=== PATIENT | female | born 1990 | race Caucasian/White ===

== ENCOUNTER 2019-10-29 09:47 | Emergency (ER) | payer MEDICAID ==
--- NOTE | 2019-10-29 12:01 | ED Physician Documentation ---
PD HPI URI - Stated complaint Stated Complaint: FEVER - Chief complaint Chief Complaint: Fever - History obtained from History obtained from: Patient - History of Present Illness Timing - onset: How many days ago (2 1/2) Timing duration: Days (2 1/2) Timing details: Abrupt onset, Still present Associated symptoms: Fever, Chills, Nasal congestion, Dry cough, NVD, Other (general aches) Contributing factors: Sick contact (her son had URI symptoms last week, but only sick for couple days), Unimmunized (did not get flu shot). No: Travel, Immunocompromised Similar symptoms before: Has not had sx before Recently seen: Not recently seen Review of Systems Constitutional: reports: Fever, Chills, Myalgias, Fatigue Nose: reports: Rhinorrhea / runny nose, Congestion Throat: reports: Sore throat Respiratory: reports: Cough GI: reports: Nausea, Diarrhea. denies: Abdominal Pain, Vomiting Neurologic: reports: Headache. denies: Near syncope, Confused, Altered mental status PD PAST MEDICAL HISTORY - Past Medical History Cardiovascular: None Respiratory: None Endocrine/Autoimmune: None GI: None : None HEENT: None Psych: None Musculoskeletal: None Derm: None - Past Surgical History Past Surgical History: Yes General: Other /MANAGER HOSPICE: section - Present Medications Home Medications: Ambulatory Orders Medication Instructions Recorded Confirmed Pnv No.95/Ferrous Fum/Folic AC 1 each PO DAILY 09/16/14 09/16/14 [ Tablet] Benzonatate [Tessalon Perle] 100 mg PO TID PRN #25 capsule 10/29/19 Ondansetron Odt [Zofran] 4 mg TL Q6H PRN #15 tablet 10/29/19 Oseltamivir [Tamiflu] 75 mg PO BID #10 capsule 10/29/19 dexAMETHasone [Decadron] 4 mg PO DAILY #5 tablet 10/29/19 diphenhydrAMINE [Benadryl] 25 mg PO Q4-6H PRN #20 capsule 10/29/19 - Allergies Allergies/Adverse Reactions: Allergies Allergy/AdvReac Type Severity Reaction Status Date / Time sulfamethoxazole Allergy Unknown Verified 09/16/14 07:52 [From ] trimethoprim [From ] Allergy Unknown Verified 09/16/14 07:52 - Social History Does the pt smoke?: No Smoking Status: Never smoker Does the pt drink ETOH?: No - Immunizations Immunizations are current?: Yes PD ED PE NORMAL - Vitals Vital signs reviewed: Yes - General General: Alert and oriented X 3, No acute distress, Well developed/nourished - HEENT HEENT: Ears normal, Moist mucous membranes, Pharynx benign - Neck Neck: Supple, no meningeal sign, No adenopathy - Cardiac Cardiac: RRR (tachycardic but regular. ), No murmur - Respiratory Respiratory: Clear bilaterally - Abdomen Abdomen: Soft, Non tender - Derm Derm: Normal color, Warm and dry - Extremities Extremities: No edema, No calf tenderness / cord - Neuro Neuro: Alert and oriented X 3, No motor deficit, Normal speech Results - Vitals Vitals: Vital Signs - 24 hr 10/29/19 10/29/19 10:28 13:07 Temperature 37.4 C Heart Rate 130 H 90 Respiratory 18 14 Rate Blood Pressure 110/74 110/76 O2 Saturation 98 100 Oxygen O2 Source Room air - EKG (time done) 12:37 Rate: Rate (enter#) (118) Rhythm: Sinus tachycardia Mcintosh: Normal Intervals: Normal AR QRS: Normal Ischemia: Normal ST segments. No: ST elevation c/w ischemia, ST depression - Labs Labs: Laboratory Tests 10/29/19 10/29/19 10:30 10:30 Influenza A (Rapid) Negative Influenza B (Rapid) POSITIVE H Group A Strep Rapid Negative PD MEDICAL DECISION MAKING - ED course Complexity details: considered differential (does not appear that ill. Heart rate is fast but BP is good, sats good, she has been hydrating. I feel comfortable discharging her with the tachycardia. ), d/w patient Departure - Departure Disposition: 01 Home, Self Care Clinical Impression: Influenza B Upper respiratory infection Qualifiers: URI type: unspecified URI Qualified Code(s): J06.9 - Acute upper respiratory infection, unspecified Condition: Stable Record reviewed to determine appropriate education?: Yes Instructions: ED Flu Prescriptions: Benzonatate [Tessalon Perle] 100 mg PO TID PRN #25 capsule PRN Reason: Cough dexAMETHasone [Decadron] 4 mg PO DAILY #5 tablet diphenhydrAMINE [Benadryl] 25 mg PO Q4-6H PRN #20 capsule PRN Reason: Cold Symptons Ondansetron Odt [Zofran] 4 mg TL Q6H PRN #15 tablet PRN Reason: Nausea / Vomiting Oseltamivir [Tamiflu] 75 mg PO BID #10 capsule Comments: Stay well-hydrated. Tylenol or ibuprofen if needed for fevers and pains. Tessalon if needed for cough. Decadron steroid to help with inflammation through the airways and respiratory tract. This will decrease coughing and improve breathing. You tested positive for flu B. You may get some benefit from an antiviral medicine since you are earlier in the course of this. Take Tamiflu twice daily for 5 days. Add diphenhydramine if needed for cough and to help with sleep as well. Ondansetron if needed for nausea. Off work for several days due to acute illness. Recheck if worsening. Forms: Activity restrictions Discharge Date/Time: 10/29/19 13:07
[2019-10-29] MEDS ORDERED: CHERRY SYRUP 10 ML UDC PO ONE (12:19)
[2019-10-29] MEDS ORDERED: ACETAMINOPHEN 325 MG TABLET PO STA (12:19)
[2019-10-29] MEDS ORDERED: BENZONATATE 100 MG CAPSULE PO STA (12:19)
[2019-10-29] MEDS ORDERED: DEXAMETHASONE 10 MG/ML VIAL PO STA (12:19)
[2019-10-29] MEDS ORDERED: OSELTAMIVIR 75 MG CAPSULE PO STA (12:19)
[2019-10-29] MEDS ORDERED: ONDANSETRON ODT 4 MG TABLET TL STA (12:20)
[2019-10-29 13:08] VITALS: BP 110/76
== END 2019-10-29 13:07 | disposition home or self-care (01) ==
LOC: ED 09:47
DX: J10.1 Influenza due to other identified influenza virus with other respiratory manifestations (principal); J06.9 Acute upper respiratory infection, unspecified; R00.0 Tachycardia, unspecified
CPT/HCPCS: 87070; 87275; 87276; 87430; 93005; 99283; A9270; Q0162

== ENCOUNTER 2022-11-04 08:00 | Outpatient (CLI) | payer MEDICAID ==
[2022-11-04 17:13] LABS: BILIRUBIN,URINE NEGATIVE (NEGATIVE); GLUCOSE, URINE (UA) NEGATIVE (NEGATIVE); KETONES,URINE (UA) NEGATIVE (NEGATIVE); LEUKOCYTE ESTERASE, URINE NEGATIVE (NEGATIVE); NITRITE,URINE NEGATIVE (NEGATIVE); OCCULT BLOOD,URINE NEGATIVE (NEGATIVE); PROTEIN,URINE NEGATIVE (NEGATIVE); UROBILINOGEN,URINE 0.2 (NORMAL) E.U./dL (NORMAL)
[2022-11-04 17:14] LABS: CLARITY,URINE CLEAR (CLEAR)
[2022-11-04 17:26] LABS: BACTERIA,URINE Few /HPF (None Seen); RBC,URINE None Seen /HPF (0-5); SQUAMOUS EPITHELIAL CELL,UR FEW Squamous (<= Few); WBC,URINE 0-3 /HPF (0-5)
== END 2022-11-04 23:59 | disposition home or self-care (01) ==
LOC: LAB 08:00
PROVIDERS: ATTEND Nurse Practitioner
DX: Z34.90 Encounter for supervision of normal pregnancy, unspecified, unspecified trimester (principal)
CPT/HCPCS: 81001; 87086

== ENCOUNTER 2022-11-18 12:44 | Outpatient (CLI) | payer MEDICAID ==
--- NOTE | 2022-11-18 17:00 | Ultrasound Report ---
PROCEDURE: OB First Trimester w/TV INDICATIONS: POSITIVE TEST OUTSIDE/PRIOR DATING DATA: Last menstrual period (LMP): 09/19/2022. LMP-based estimated date of delivery (SUSAN): 06/26/2023. First dating scan (date and location): 11/18/2022. Estimated date of delivery (SUSAN) from first dating scan: 06/26/2023. TECHNIQUE: Real-time scanning was performed of the fetus and maternal pelvic organs, with image documentation. Endovaginal scanning was also performed to better visualize the fetus and maternal ovaries. COMPARISON: None FINDINGS: A single living intrauterine gestation is present with a heart rate of 162 bpm. [place] -rump length is 14 mm, corresponding to a 7 week 5 day gestation. Small para gestational hemorrhage m easuring 25 mm. Measurement variability in dating: +/- 4 weeks by LMP, +/- 7 days by mean sac diamet er (use before 6 weeks gestation if crown-rump length not able to be measured), +/- 5 days by crown-r ump length (6-12 weeks gestation). Maternal organs: Left ovarian corpus luteal cyst is present measuring 18 mm. IMPRESSION: Single living intrauterine gestation. Reviewed by: Mildred Mao MD on 11/18/2022 4:59 PM PST Approved by: Mildred Mao MD on 11/18/2022 4:59 PM PST Station ID: [id number]
== END 2022-11-18 12:45 | disposition home or self-care (01) ==
LOC: DI 12:44
PROVIDERS: ATTEND Nurse Practitioner
DX: Z34.91 Encounter for supervision of normal pregnancy, unspecified, first trimester (principal)

== ENCOUNTER 2022-12-02 12:21 | Outpatient (CLI) | payer MEDICAID ==
[2022-12-02 12:39] LABS: BASOPHILS % (AUTO) 0.3 %; EOSINOPHILS % (AUTO) 0.7 %; LYMPHOCYTES # (AUTO) 1.4 10^3/uL (1.5-3.5); LYMPHOCYTES % (AUTO) 23.6 %; MEAN CORPUSCULAR HEMOGLOBIN 26.6 pg (27.0-31.0); MEAN CORPUSCULAR HGB CONC 32.4 g/dL (32.0-36.0); MEAN CORPUSCULAR VOLUME 82.3 fL (81.0-99.0); MEAN PLATELET VOLUME 10.3 fL (7.9-10.8); MONOCYTES # (AUTO) 0.4 10^3/uL (0.0-1.0); MONOCYTES % (AUTO) 6.7 %; NEUTROPHILS # (AUTO) 4.1 10^3/uL (1.5-6.6); NEUTROPHILS % (AUTO) 68.4 %; PLT - PLATELET COUNT 222 10^3/uL (130-450); RED BLOOD COUNT 4.13 10^6/uL (4.20-5.40); RED CELL DISTRIBUTION WIDTH 16.5 % (12.0-15.0)
[2022-12-02 23:56] LABS: CHLAMYDIA TRACHOMATIS DNA NEGATIVE (NEGATIVE); NEISSERIA GONORRHOEAE DNA NEGATIVE (NEGATIVE); TRICHOMONAS VAGINALIS DNA NEGATIVE (NEGATIVE)
[2022-12-03 06:09] LABS: HBsAG SCREEN Negative (Negative)
[2022-12-03 07:09] LABS: HCV AB <0.1 s/co ratio (0.0-0.9); RPR Non Reactive (Non Reactive)
[2022-12-03 08:09] LABS: VARICELLA-ZOSTER AB IGG 527 index (Immune >165)
[2022-12-03 09:09] LABS: HIV SCREEN 4TH GENERATION Non Reactive (Non Reactive)
== END 2022-12-02 12:22 | disposition home or self-care (01) ==
LOC: LAB 12:21
PROVIDERS: ATTEND Nurse Practitioner
DX: Z34.90 Encounter for supervision of normal pregnancy, unspecified, unspecified trimester (principal)
CPT/HCPCS: 36415; 85025; 86592; 86762; 86787; 86803; 86850; 86900; 86901; 87340; 87389; 87491; 87591; 87661

== ENCOUNTER 2022-12-30 11:30 | Outpatient (CLI) | payer MEDICAID | END 2022-12-30 23:59 | disposition home or self-care (01) | LOC: LAB 11:30 | PROVIDERS: ATTEND Obstetrics & Gynecology | DX: Z34.90 Encounter for supervision of normal pregnancy, unspecified, unspecified trimester (principal) | CPT/HCPCS: 87086 ==

== ENCOUNTER 2023-01-27 12:10 | Outpatient (CLI) | payer MEDICAID ==
--- NOTE | 2023-01-27 15:43 | Ultrasound Report ---
PROCEDURE: OB 14+ Weeks INDICATIONS: SUPERVISION OF OUTSIDE/PRIOR DATING DATA: Last menstrual period (LMP): 09/19/2022. LMP-based estimated date of delivery (SUSAN): 06/26/2023. First dating scan (date and location): 11/18/2022. Estimated date of delivery (SUSAN) from first dating scan: 06/26/2023. The below data below was generated using the working SUSAN of 06/26/2023 TECHNIQUE: Real-time scanning was performed of the fetus, with image documentation and biometric measurements. Endovaginal scanning: None COMPARISON: OB ultrasound 11/18/2022. FINDINGS: General: A single living intrauterine gestation is present. Presentation: Variable Placenta: Placental position is posterior, without previa. Amniotic fluid index: 10.7 cm, 16th percentile for gestational age. heart rate: 157 beats per minute. Maternal cervical canal: 6.6 cm long; normal length is 2.5 cm or more. biometrics: Biparietal diameter: 3.73 cm, 17 weeks 3 days Head circumference: 14.8 cm, 17 weeks 6 days Abdominal circumference: 11.2 cm, 17 weeks 0 days Femur length: 2.7 cm, 18 weeks 1 day Estimated gestational age from initial scan: 18 weeks 4 days Composite gestational age from present scan: 17 weeks 5 days Estimated weight and percentile: 201.4 g, 6th percentile Measurement variability for biometric dating: +/- 10 days from 12-20 weeks gestation, +/- 2 weeks fro m 20-30 weeks gestation, +/- 3 weeks for 30 weeks gestation or later. Anatomic survey: Neuro: Ventricles are non-dilated at less than 10 mm. Cisterna magna is normal at 3-11 mm. Cerebel lum is normal in size and morphology. Nuchal skin fold: Normal at less than 6 mm between 14-20 weeks gestational age. Face: A recent appear normal. nose/lips are not well evaluated. facial profile not well s een. Spine: Incompletely evaluated due to positioning, but grossly normal. Heart: Heart now well evaluated due to positioning. Diaphragm: Diaphragm is intact. Stomach: Left-sided stomach is present. Kidneys: No hydronephrosis. Normal is less than 5 mm in 2nd trimester, less than 7 mm in 3rd trimester. Cord: 3-vessel cord has orthotopic insertion. Bladder: Normal in size. Extremities: All 4 extremities identified. IMPRESSION: 1.Single live intrauterine . 2.Estimated weight is at the 6th percentile for gestational age. 3.Incomplete anatomic survey due to positioning. Recommend follow-up exam. Reviewed by: Shane Moss MD on 01/27/2023 3:42 PM PST Approved by: Shane Moss MD on 01/27/2023 3:42 PM PST Station ID: [id number]
== END 2023-01-27 12:11 | disposition home or self-care (01) ==
LOC: DI 12:10
PROVIDERS: ATTEND Obstetrics & Gynecology
DX: Z34.92 Encounter for supervision of normal pregnancy, unspecified, second trimester (principal)

== ENCOUNTER 2023-03-24 11:53 | Outpatient (CLI) | payer MEDICAID ==
[2023-03-24 13:09] LABS: HCT - HEMATOCRIT 30.8 % (37.0-47.0); HGB - HEMOGLOBIN 10.1 g/dL (12.0-16.0); MEAN CORPUSCULAR HEMOGLOBIN 29.3 pg (27.0-31.0); MEAN CORPUSCULAR HGB CONC 32.8 g/dL (32.0-36.0); MEAN CORPUSCULAR VOLUME 89.3 fL (81.0-99.0); MEAN PLATELET VOLUME 9.8 fL (7.9-10.8); RED BLOOD COUNT 3.45 10^6/uL (4.20-5.40); WHITE BLOOD COUNT 6.5 x10^3/uL (4.8-10.8)
== END 2023-03-24 11:54 | disposition home or self-care (01) ==
LOC: LAB 11:53
PROVIDERS: ATTEND Nurse Practitioner
DX: Z34.90 Encounter for supervision of normal pregnancy, unspecified, unspecified trimester (principal); Z36.89 Encounter for other specified antenatal screening
CPT/HCPCS: 36415; 82728; 82950; 85027

== ENCOUNTER 2023-03-31 10:20 | Outpatient (CLI) | payer MEDICAID ==
[2023-03-31 10:52] VITALS: BP 103/63
[2023-03-31] MEDS ORDERED: FERRIC GLUCONATE 125 MG in SODIUM CHLORIDE 0.9% 100ML 100 ML IV ONE (11:15)
--- NOTE | 2023-03-31 16:55 | PROVIDER PROGRESS NOTE ---
Subjective - Prog Note Date Prog Note Date: 03/31/23 Prog Note Time: 16:00 Objective - Vital Signs/Intake & Output Vital Signs: Vital Signs x48h Temp Pulse Resp BP 03/31/23 10:48 98.2 F 92 14 103/63 Intake & Output: Intake & Output 03/28/23 03/29/23 03/30/23 03/31/23 23:59 23:59 23:59 23:59 Intake Total 110 Balance 110 Assessment/Plan - Problem List (1) Anemia affecting in second trimester Impression: 32yo at 27.4w presenting for scheduled Ferrlicit iron infusion, tolerated well.
== END 2023-03-31 12:38 | disposition home or self-care (01) ==
LOC: WFO 10:20 → FBP 10:20 → WFO 12:38
PROVIDERS: ATTEND Obstetrics & Gynecology
DX: O99.012 Anemia complicating pregnancy, second trimester (principal); D50.9 Iron deficiency anemia, unspecified; Z3A.27 27 weeks gestation of pregnancy
CPT/HCPCS: 96365; J2916

== ENCOUNTER 2023-04-14 09:52 | Outpatient (CLI) | payer MEDICAID ==
[2023-04-14 10:06] VITALS: BP 105/65
[2023-04-14] MEDS ORDERED: FERRIC GLUCONATE 125 MG in SODIUM CHLORIDE 0.9% 100ML 100 ML IV ONE (10:30)
--- NOTE | 2023-04-14 21:24 | PROVIDER PROGRESS NOTE ---
- HPI Current : Current EDU 06/26/23 Gestation 29 Weeks and 4 Days 4 Para 3 Vital Signs Temperature 98.1 F 04/14/23 09:58 Heart Rate 89 04/14/23 09:58 Respiratory Rate 15 04/14/23 09:58 Blood Pressure 105/65 04/14/23 09:58 Temperature 98.1 F 04/14/23 09:58 Heart Rate 89 04/14/23 09:58 Respiratory Rate 15 04/14/23 09:58 Blood Pressure 105/65 04/14/23 09:58 O2 Saturation If not protocol: Oxygen Flow, liters/minute - Procedures NST Procedure: NST Procedure Patient States Movement Yes - Plan Plan: 32yo at 29.4w presenting for scheduled iron infusion for anemia in , third trimester - Tolerated well - Follow up as scheduled
== END 2023-04-14 11:40 | disposition home or self-care (01) ==
LOC: WFO 09:52 → FBP 09:54 → WFO 11:40
PROVIDERS: ATTEND Obstetrics & Gynecology
DX: O99.013 Anemia complicating pregnancy, third trimester (principal); D50.9 Iron deficiency anemia, unspecified; Z3A.29 29 weeks gestation of pregnancy
CPT/HCPCS: 96365; J2916

== ENCOUNTER 2023-04-26 21:02 | Outpatient (CLI) | payer MEDICAID ==
--- NOTE | 2023-04-27 11:19 | Ultrasound Report ---
PROCEDURE: OB F/U or Repeat INDICATIONS: ABNORMAL US OUTSIDE/PRIOR DATING DATA: Last menstrual period (LMP): 09/19/2022. LMP-based estimated date of delivery (SUSAN): 06/26/2023. First dating scan (date and location): 11/18/2022. Estimated date of delivery (SUSAN) from first dating scan: 06/26/2023. The below data below was generated using the ultrasound SUSAN of 06/26/2023 TECHNIQUE: Real-time scanning was performed of the fetus, with image documentation and biometric measurements. COMPARISON: OB ultrasound 01/27/2023.. FINDINGS: General: A single living intrauterine gestation is present. Presentation: Vertex Placenta: Placental position is posterior, without previa. Amniotic fluid index: 11.8 cm, normal for gestational age. Largest pocket 4.5 cm. heart rate: 140 beats per minute. Maternal cervical canal: 4 cm long; normal length is 2.5 cm or more. biometrics: Biparietal diameter: 7.3 cm, 29 weeks 2 days Head circumference: 28.2 cm, 30 weeks 6 days Abdominal circumference: 25.9 cm, 30 weeks 0 days Femur length: 5.7 cm, 29 weeks 5 days Estimated gestational age from initial scan: 31 weeks 2 days Composite gestational age from present scan: 30 weeks 0 days Estimated weight and percentile: 149 0 g; 8th percentile. Measurement variability in biometric dating: +/- 10 days from 12-20 weeks gestation, +/- 2 weeks from 20-30 weeks gestation, +/- 3 weeks at 30 weeks gestation or more. Other: Umbilical artery S/D ratio: 2.9, 3.8, 2.1. Preserved diastolic flow. Three-vessel cord. IMPRESSION: 1. [place]jarrez living intrauterine at 30 weeks 0 days based on today's ultrasound. Fetus is i n the 8th percentile for weight. 2. Normal placenta and amniotic fluid. 3. Umbilical artery Doppler is within normal limits. Preserved diastolic flow. Reviewed by: Villa Dugan MD on 04/27/2023 11:18 AM PDT Approved by: Villa Dugan MD on 04/27/2023 11:18 AM PDT Station ID: [id number]
== END 2023-04-26 21:03 | disposition home or self-care (01) ==
LOC: DI 21:02
PROVIDERS: ATTEND Nurse Practitioner
DX: O28.3 Abnormal ultrasonic finding on antenatal screening of mother (principal); Z3A.30 30 weeks gestation of pregnancy

== ENCOUNTER 2023-04-28 10:04 | Outpatient (CLI) | payer MEDICAID ==
[2023-04-28] MEDS ORDERED: FERRIC GLUCONATE 125 MG in SODIUM CHLORIDE 0.9% 100ML 100 ML IV ONE (10:10)
[2023-04-28 12:12] VITALS: BP 97/60
--- NOTE | 2023-04-28 22:05 | PROCEDURE REPORT ---
- HPI Diagnosis/Indication for NST: Intrauterine growth restriction Current EDU 06/26/23 Gestation 31 Weeks and 4 Days 4 Para 3 Vital Signs Temperature 98.2 F 04/28/23 10:15 Heart Rate 89 04/28/23 10:15 Respiratory Rate 14 04/28/23 10:15 Blood Pressure 93/63 04/28/23 10:15 Temperature 98.2 F 04/28/23 10:15 Heart Rate 78 04/28/23 12:00 Respiratory Rate 16 04/28/23 12:00 Blood Pressure 97/60 04/28/23 12:00 O2 Saturation If not protocol: Oxygen Flow, liters/minute - NST Procedure NST Procedure Patient States Movement Yes
--- NOTE | 2023-04-28 22:10 | PROVIDER PROGRESS NOTE ---
- HPI Current : Current EDU 06/26/23 Gestation 31 Weeks and 4 Days 4 Para 3 Vital Signs Temperature 98.2 F 04/28/23 10:15 Heart Rate 89 04/28/23 10:15 Respiratory Rate 14 04/28/23 10:15 Blood Pressure 93/63 04/28/23 10:15 Temperature 98.2 F 04/28/23 10:15 Heart Rate 78 04/28/23 12:00 Respiratory Rate 16 04/28/23 12:00 Blood Pressure 97/60 04/28/23 12:00 O2 Saturation If not protocol: Oxygen Flow, liters/minute - Procedures NST Procedure: NST Procedure Patient States Movement Yes - Plan Plan: 32yo at 31.4w presents for scheduled iron infusion for anemia in in third trimester - Tolerated well - Follow up as scheduled
== END 2023-04-28 12:09 | disposition home or self-care (01) ==
LOC: WFO 10:04 → FBP 10:06 → WFO 12:09
PROVIDERS: ATTEND Obstetrics & Gynecology
DX: O99.013 Anemia complicating pregnancy, third trimester (principal); Z3A.31 31 weeks gestation of pregnancy
CPT/HCPCS: 96365; J2916

== ENCOUNTER 2023-05-08 21:01 | Outpatient (CLI) | payer MEDICAID ==
--- NOTE | 2023-05-09 12:35 | Ultrasound Report ---
PROCEDURE: OB F/U or Repeat INDICATIONS: FOLLOW UP FOR SUSAN OUTSIDE/PRIOR DATING DATA: Last menstrual period (LMP): 09/19/2022. LMP-based estimated date of delivery (SUSAN): 06/26/2023. First dating scan (date and location): 11/18/2022 at [facility]. Estimated date of delivery (SUSAN) from first dating scan: 07/02/2023 (please note correction). The below data below was generated using the ultrasound SUSAN of 07/02/2023 (please note correction). TECHNIQUE: Real-time scanning was performed of the fetus, with image documentation and biometric measurements. COMPARISON: OB ultrasound, 11/18/2022, 01/27/2023 and 04/26/2023. FINDINGS: General: A single living intrauterine gestation is present. Presentation: Vertex Placenta: Placental position is posterior, without previa. Amniotic fluid index: 13.0 cm; largest pocket 3.7 cm. heart rate: 11/21/1936 beats per minute. Maternal cervical canal: Closed, measuring 3.4 cm long; normal length is 2.5 cm or more. biometrics: Biparietal diameter: 32 weeks 3 days ([place] 49.6%). Head circumference: 34 weeks 5 days ([place] 81.0%). Abdominal circumference: 31weeks 0 day ([place] 18.5%). Femur length: 30 weeks 5 days ([place] 8.8%). Estimated gestational age from initial scan: 32 weeks 1 day Composite gestational age from present scan: 32 weeks 2 day Estimated weight and percentile: 1763.8 g; 19.3% for gestational age. Measurement variability in biometric dating: +/- 10 days from 12-20 weeks gestation, +/- 2 weeks from 20-30 weeks gestation, +/- 3 weeks at 30 weeks gestation or more. Other: Not applicable. IMPRESSION: 1. A single living IUP is again demonstrated. 2. There is appropriate interval growth based on the ultrasound SUSAN of 07/02/2023. 3. The estimated weight is 1760.8 g, 19.3% for gestational age. 4. Normal SELINA at 13.0 cm. Reviewed by: Pamela Foster MD on 05/09/2023 12:34 PM PDT Approved by: Pamela Foster MD on 05/09/2023 12:34 PM [facility] Station ID: [id number]
== END 2023-05-08 21:02 | disposition home or self-care (01) ==
LOC: DI 21:01
PROVIDERS: ATTEND Obstetrics & Gynecology
DX: Z53.9 Procedure and treatment not carried out, unspecified reason (principal)

== ENCOUNTER 2023-05-12 10:02 | Outpatient (CLI) | payer MEDICAID ==
[2023-05-12] MEDS ORDERED: FERRIC GLUCONATE 125 MG in SODIUM CHLORIDE 0.9% 100ML 100 ML IV ONE (11:00)
[2023-05-12 12:32] VITALS: BP 106/65
--- NOTE | 2023-05-12 17:58 | PROVIDER PROGRESS NOTE ---
Subjective - Prog Note Date Prog Note Date: 05/12/23 Prog Note Time: 16:00 Objective - Vital Signs/Intake & Output Vital Signs: Vital Signs x48h Temp Pulse Pulse Resp BP Pulse Ox 05/12/23 12:26 89 14 106/65 05/12/23 10:48 98.2 F 05/12/23 10:39 98.2 F 90 14 98/61 100 Intake & Output: Intake & Output 05/09/23 05/10/23 05/11/23 05/12/23 23:59 23:59 23:59 23:59 Intake Total 110 Balance 110 Assessment/Plan - Problem List (1) Anemia complicating , third trimester Impression: 32yo at 32.5w presenting for scheduled Ferrlicit infusion. Tolerated well. Follow up as scheduled.
== END 2023-05-12 12:28 | disposition home or self-care (01) ==
LOC: WFO 10:02 → FBP 10:30 → WFO 12:28
PROVIDERS: ATTEND Obstetrics & Gynecology
DX: O99.013 Anemia complicating pregnancy, third trimester (principal); D50.9 Iron deficiency anemia, unspecified; Z3A.32 32 weeks gestation of pregnancy
CPT/HCPCS: 96365; J2916

== ENCOUNTER 2023-06-20 10:45 | Inpatient (IN) | payer MEDICAID ==
--- OUTSIDE RECORDS SUMMARY | 2023-06-27 06:14 | EXTERNAL MEDICAL SUMMARY RPT | Continuity of Care Document ---
Author Name Unknown Address [address] [place] [address] Phone Organization [facility] Address [address] [place] [address] Phone Care Team Providers Care Telegraph Mechanic Name Role Phone Unavailable Unavailable Unavailable Kristi Cesar Unavailable Unavailfamilia Orta Md, Lobo Unavailable Unavailable Daysi Stewart Analyst, Anitha Unavail able Unavailable Problems date description facility 2023-04-07 00:00 Counseling All 2023-04-07 00:00 Counseling All 2023-04-07 00:00 Counseling All 2023-04-07 00:00 Unspecified hemorrhoids without mention of complication All 2023-04-07 00:00 Unspecified hemorrhoids without mention of complication All 2023-04-07 00:00 Unspecified hemorrhoids without mention of complication All 2023-04-07 00:00 Hemorrhoids All 2023-04-07 00:00 Hemorrhoids All 2023-04-07 00:00 Hemorrhoids All 2023-04-07 00:00 Gestation period, 28 weeks All 2023-04-07 00:00 Gestation period, 28 weeks All 2023-04-07 00:00 Gestation period, 28 weeks All 2023-04-07 00:00 Unspecified hemorrhoids All 2023-04-07 00:00 Unspecified hemorrhoids All 2023-04-07 00:00 Unspecified hemorrhoids All 2023-04-07 00:00 Encounter for unspecified anten atal screening of mother All 2023-04-07 00:00 Encounter for unspecified anten atal screening of mother All 2023-04-07 00:00 Encounter for unspecified anten atal screening of mother All 2023-04-07 00:00 28 weeks gestation of All 2023-04-07 00:00 28 weeks gestation of All 2023-04-07 00:00 28 weeks gestation of All 2023-04-07 00:00 Encounter for immunization safe ty counseling All 2023-04-07 00:00 Encounter for immunization safe ty counseling All 2023-04-07 00:00 Encounter for immunization safe ty counseling All 2023-04-27 00:00 Small for gestational age fetus All 2023-04-27 00:00 Small for gestational age fetus All 2023-04-27 00:00 Small for gestational age fetus All 2023-04-27 00:00 'Pmfls-wkd-ycwui' wi thout mention of malnutrition, unspecified [weight] All 2023-04-27 00:00 'Mrhvf-lcv-yeytp' wi thout mention of malnutrition, unspecified [weight] All 2023-04-27 00:00 'Xmenj-zkj-ezlgi' wi thout mention of malnutrition, unspecified [weight] All 2023-04-27 00:00 small for gestational a ge, unspecified weight All 2023-04-27 00:00 small for gestational a ge, unspecified weight All 2023-04-27 00:00 [place] small for gestational a ge, unspecified weight All Procedures date description facility 2023-04-21 00:00 Visit Code Hold All 2023-04-21 00:00 Visit Code Hold All 2023-04-21 00:00 Visit Code Hold All 2023-05-03 00:00 Visit Code Hold All 2023-05-03 00:00 Visit Code Hold All 2023-05-19 00:00 Visit Code Hold All 2023-05-19 00:00 Visit Code Hold All 2023-05-30 00:00 Visit Code Hold All 2023-06-08 00:00 Visit Code Hold All 2023-04-27 00:00 OBGYN Consultation All 2023-04-18 00:00 OB US FOLLOW-UP All 2023-04-18 00:00 OB US FOLLOW-UP All 2023-06-08 00:00 GBSPCR,REFLEX IF PEN ALLERGIC A ll 2023-04-07 00:00 First Ix admin via I D IM or jet injects with counseling by physician for adult All 2023-04-07 00:00 First Ix admin via I D IM or jet injects with counseling by physician for adult All 2023-04-07 00:00 First Ix admin via I D IM or jet injects with counseling by physician for adult All 2023-04-07 00:00 Boostrix Intramuscular Suspensi on 5-2.5-18.5 All 2023-04-07 00:00 Boostrix Intramuscular Suspensi on 5-2.5-18.5 All 2023-04-07 00:00 Boostrix Intramuscular Suspensi on 5-2.5-18.5 All Results/Labs test date facility value unit notes Social History date description facility 2023-04-21 00:00 Never smoker All 2023-04-21 00:00 Never smoker All 2023-04-21 00:00 Never smoker All Vital Signs date measurement value units 2023-04-07 00:00 BMI 31.62 kg/m2 2023-04-07 00:00 BP_diastolic 61 mmHg 2023-04-07 00:00 BP_systolic 97 mmHg 2023-04-07 00:00 weight_metric 70.76 kg 2023-04-07 00:00 weight_standard 156 lb 2023-04-21 00:00 BMI 31.82 kg/m2 2023-04-21 00:00 BP_diastolic 82 mmHg 2023-04-21 00:00 BP_systolic 116 mmHg 2023-04-21 00:00 heart_rate 89 /min 2023-04-21 00:00 height_metric 149.86 cm 2023-04-21 00:00 height_standard 59 in 2023-04-21 00:00 weight_metric 71.21 kg 2023-04-21 00:00 weight_standard 157 lb 2023-05-03 00:00 BMI 32.47 kg/m2 2023-05-03 00:00 BP_diastolic 62 mmHg 2023-05-03 00:00 BP_systolic 102 mmHg 2023-05-03 00:00 height_metric 149.86 cm 2023-05-03 00:00 height_standard 59 in 2023-05-03 00:00 weight_metric 72.67 kg 2023-05-03 00:00 weight_standard 160.2 lb 2023-05-19 00:00 BMI 33.04 kg/m2 2023-05-19 00:00 BP_diastolic 60 mmHg 2023-05-19 00:00 BP_systolic 102 mmHg 2023-05-19 00:00 heart_rate 86 /min 2023-05-19 00:00 height_metric 149.86 cm 2023-05-19 00:00 height_standard 59 in 2023-05-19 00:00 weight_metric 73.94 kg 2023-05-19 00:00 weight_standard 163 lb 2023-05-30 00:00 BMI 33.57 kg/m2 2023-05-30 00:00 BP_diastolic 76 mmHg 2023-05-30 00:00 BP_systolic 124 mmHg 2023-05-30 00:00 height_metric 149.86 cm 2023-05-30 00:00 height_standard 59 in 2023-05-30 00:00 weight_metric 75.11 kg 2023-05-30 00:00 weight_standard 165.6 lb
[2023-06-27] MEDS ORDERED: LACTATED RINGERS 1,000 ML IV SCH ×3 (06:30→11:00)
[2023-06-27] MEDS ORDERED: ceFAZolin 2 GM in SODIUM CHLORIDE 0.9% MINIBAG 100 ML IV ONE (06:30)
[2023-06-27] MEDS ORDERED: GABAPENTIN 400 MG CAPSULE PO SCH (06:30)
[2023-06-27] MEDS ORDERED: ACETAMINOPHEN 500 MG TABLET PO SCH (06:30)
[2023-06-27] MEDS ORDERED: CELECOXIB 100 MG CAPSULE PO SCH (06:30)
[2023-06-27 07:16] LABS: BASOPHILS % (AUTO) 0.2 %; EOSINOPHILS % (AUTO) 0.6 %; HCT - HEMATOCRIT 31.4 % (37.0-47.0); HGB - HEMOGLOBIN 10.4 g/dL (12.0-16.0); LYMPHOCYTES # (AUTO) 1.5 10^3/uL (1.5-3.5); LYMPHOCYTES % (AUTO) 24.4 %; MEAN CORPUSCULAR HEMOGLOBIN 29.6 pg (27.0-31.0); MEAN CORPUSCULAR HGB CONC 33.1 g/dL (32.0-36.0); MEAN CORPUSCULAR VOLUME 89.5 fL (81.0-99.0); MEAN PLATELET VOLUME 11.2 fL (7.9-10.8); MONOCYTES # (AUTO) 0.5 10^3/uL (0.0-1.0); MONOCYTES % (AUTO) 8.4 %; NEUTROPHILS # (AUTO) 4.1 10^3/uL (1.5-6.6); NEUTROPHILS % (AUTO) 65.8 %; PLT - PLATELET COUNT 149 10^3/uL (130-450); RED BLOOD COUNT 3.51 10^6/uL (4.20-5.40); RED CELL DISTRIBUTION WIDTH 14.2 % (12.0-15.0); WHITE BLOOD COUNT 6.2 x10^3/uL (4.8-10.8)
--- NOTE | 2023-06-27 07:58 | ANESTHESIA ---
Pre-Anesthesia VS, & Labs - Diagnosis term , previous c/s - Procedure repeat c/s Vital Signs: Temp Pulse Resp BP Pulse Ox O2 Flow Rate 37.3 C 84 16 106/78 06/27/23 06:38 06/27/23 06:38 06/27/23 06:38 06/27/23 06:38 Height: 4 ft 11 in Weight (kg): 77.111 kg Body Mass Index: 34.3 BMI Classification: Obese - NPO >8 hours - Is Patient ?: Yes - Lab Results Current Lab Results: Laboratory Tests 06/27/23 06:55: WBC 6.2, RBC 3.51 L, Hgb 10.4 L, Hct 31.4 L, MCV 89.5, MCH 29.6, MCHC 33.1, RDW 14.2, Plt Count 149, MPV 11.2 H, Neut # (Auto) 4.1, Lymph # (Auto) 1.5, [place] # (Auto) 0.5, Eos # (Auto) 0.0, Baso # (Auto) 0.0, Absolute Nucleated RBC 0.00, Nucleated RBC % 0.0 Lab results reviewed: Yes Fish Bones: 06/27/23 06:55 Home Medications and Allergies Active Medications Acetaminophen (Acetaminophen 500 Mg Tablet) 1,000 mg PO ONCE AMRIT Stop: 06/28/23 06:29 Celecoxib (Celecoxib 100 Mg Capsule) 400 mg PO ONCE AMRIT Stop: 06/28/23 06:29 Gabapentin (Gabapentin 400 Mg Capsule) 800 mg PO ONCE AMRIT Stop: 06/28/23 06:29 Lactated Ringer's (Lr) 1,000 mls @ 0 mls/hr IV .Q0M AMRIT Last Admin: 06/27/23 07:00 Dose: 75 mls/hr Pnv No.95/Ferrous Fum/Folic AC [ Tablet] 1 each PO DAILY 09/16/14 Allergies/Adverse Reactions: Allergies Allergy/AdvReac Type Severity Reaction Status Date / Time sulfamethoxazole Allergy Unknown Verified 09/16/14 07:52 [From ] trimethoprim [From ] Allergy Rash Verified 06/27/23 07:16 Anes History & Medical History - Anesthetic History Family history of Anesthesia Complications: Denies Family history of Malignant Hyperthermia: Denies - Medical History Cardiovascular: reports: None Pulmonary: reports: None Gastrointestinal: reports: None Urinary: reports: None Neuro: reports: None Musculoskeletal: reports: None Endocrine/Autoimmune: reports: None Skin: reports: None Smoking Status: Never smoker Psychosocial: reports: No issues indicated History of Cancer?: No - Surgical History General: reports: Other Gynecologic: reports: section - Obstetrical History : 4 Parity: 3 Events: reports: None Complications: reports: None Exam General: Alert, Oriented x3, Cooperative, No acute distress Dental: WNL Mouth Openin Fingerbreadth Neck Mobility: Normal Mallampati classification: I Thyromental Distance: 4-6 cm Mental/Cognitive Status: Alert/Oriented X3, Normal for patient Plan Anesthesia Type: Spinal Consent for Procedure(s) Verified and Reviewed: Yes Code Status: Attempt Resuscitation ASA classification: 2-Mild systemic disease Is this case an emergency?: No
[2023-06-27] MEDS ORDERED: fentaNYL 100 MCG/2 ML VIAL IVP PRN (08:03)
[2023-06-27] MEDS ORDERED: HYDROmorphone 0.5 MG/0.5 ML SYRINGE IVP PRN (08:03)
[2023-06-27] MEDS ORDERED: NALOXONE 0.4 MG/ML VIAL IVP PRN ×2 (08:03→11:42)
[2023-06-27] MEDS ORDERED: MORPHINE 2 MG/ML CARPUJECT IVP PRN (08:03)
[2023-06-27] MEDS ORDERED: ONDANSETRON 4 MG/2 ML VIAL IVP PRN ×2 (08:03→11:42)
[2023-06-27] MEDS ORDERED: ATROPINE ABBOJECT 1 MG/10 ML SYRINGE IVP PRN (08:03)
[2023-06-27] MEDS ORDERED: METHYLERGONOVINE 0.2 MG/ML VIAL ONE (08:15)
[2023-06-27] MEDS ORDERED: miSOPROStoL 200 MCG TABLET ONE (08:15)
[2023-06-27] MEDS ORDERED: CARBOPROST TROMETHAMINE 250 MCG/ML AMP IM ONE (08:15)
[2023-06-27] MEDS ORDERED: PHENYLEPHRINE 10 MG/ML VIAL ONE (08:16)
[2023-06-27] MEDS ORDERED: OXYTOCIN/SODIUM CHLORIDE 500 ML IV ONE (08:16)
[2023-06-27] MEDS ORDERED: ceFAZolin 2 GM in SODIUM CHLORIDE 0.9% 100ML 100 ML IV STA (08:17)
[2023-06-27] MEDS ORDERED: MORPHINE PF 5 MG/10 ML VIAL ONE (08:17)
--- NOTE | 2023-06-27 08:27 | HISTORY & PHYSICAL EXAMINATION ---
Admit History - : 4 Parity: 3 Risk/History: positive: Previous Smoking Status: Never smoker - Mother's Labs Mother's Blood Type: positive: B Mother's RH: positive: Positive GBS: positive: Group B Strep Positive Rubella Status: positive: Immune - Other Maternal History Other Maternal History: HPI: Patient is a 32-year-old -0-0-3 at 39 weeks 2 days gestation presenting for repeat section. She has good movement. Denies loss of fluid. No CAREY/BV or RUQP. No vaginal bleeding. Denies nausea and vomiting. Denies urinary urgency or dysuria. All other symptoms reviewed and were negative except per HPI. Course LMP: 06/26/2023 SUSAN by LMP: 06/26/2023 11/18/2022 / 7weeks +5 days, SUSAN 07/02/2023 Final SUSAN: 07/02/2023 Problems: Section X3 2012, 2013, 2015. Hx of IUGR: Ultrasound 05/08/2023: 1763 g, 19th percentile. Normal amniotic fluid index. Pre- weight: 124.6 lbs BMI: 25.26 B pos/Rubella: immune VZV: immune Genetic testing: Discussed 12/02/2022 - none ordered FAS: MFM 02/17/23 It's a girl! Glucola: 113 Influenza: given 12/02/2022 TDAP: given 04/07 GBS 06/08 Positive HSV: denies in self or partner. Breast Pump Rx: given 04/07 MOD: R/P c/s pp contraception: considering Mirena placement during c/s pap:6yrs ago. plan Initial GC/CT: 12/02- Negative PMH Anemia of Past surgical history section x3 OB History -0-0-3 1. 01/24/2013, section, male 2. 09/17/2014, section, male 3. 07/27/2016, section, male SH Denies tobacco, alcohol, drugs Family History Mother: Diabetes Father: Diabetes Aunt: Breast cancer Paternal grandfather: Throat cancer Allergies Septra: Rash Medications vitamins Physical exam: General: Alert, oriented, no acute distress Head: Normal cephalic atraumatic Eyes: PERRLA, extraocular motions intact. Respiratory: Normal rate of respiration. No accessory muscle use, normal respiratory effort. Cardiovascular: Regular rate and rhythm Abdomen: Gravid, nontender, nondistended Extremities: Normal range of motion Neuro: Oriented x3. Normal movements Psych: Appropriate mood and affect. Normal judgment and insight FHT: 130 beats minute baseline, moderate variability, accelerations present, no decelerations. Vernal: Irregular Plan 32-year-old -0-0-3 at 39 weeks 2 days gestation admitted for repeat section 1. Repeat section - section was recommended. Risks, benefits and alternatives were discussed including but not limited to infection, bleeding that may require blood products or hysterectomy for life saving measures, injury to surrounding organs including but not limited to bowel, bladder, ureters, tubes and ovaries and/or the baby. Should injury occur it could require longer/additional surgery to repair. The patient stated understanding and desired to proceed. All questions were answered posed by patient. -Admit to L&D, admit labs, plan for spinal anesthesia. -2 g cefazolin for surgical prophylaxis 2. 39 weeks gestation 3. Anemia of -Hemoglobin today 10.4. 2 units crossmatched 4. Previous low-transverse section x3 -Uterotonic's in the OR. - HPI Current EDU 06/26/23 Gestation 40 Weeks and 1 Days 4 Vital Signs Temperature 99.1 F 06/27/23 06:38 Heart Rate 84 06/27/23 06:38 Respiratory Rate 16 06/27/23 06:38 Blood Pressure 106/78 06/27/23 06:38 Temperature 99.1 F 06/27/23 06:38 Heart Rate 84 06/27/23 06:38 Respiratory Rate 16 06/27/23 06:38 Blood Pressure 106/78 06/27/23 06:38 O2 Saturation If not protocol: Oxygen Flow, liters/minute Meds/Allgy - Home Medications Home Medications: Ambulatory Orders Medication Instructions Recorded Confirmed Pnv No.95/Ferrous Fum/Folic AC 1 each PO DAILY 09/16/14 09/16/14 [ Tablet] Benzonatate [Tessalon Perle] 100 mg PO TID PRN #25 capsule 10/29/19 Ondansetron Odt [Zofran] 4 mg TL Q6H PRN #15 tablet 10/29/19 Oseltamivir [Tamiflu] 75 mg PO BID #10 capsule 10/29/19 dexAMETHasone [Decadron] 4 mg PO DAILY #5 tablet 10/29/19 diphenhydrAMINE [Benadryl] 25 mg PO Q4-6H PRN #20 capsule 10/29/19 - Allergies Allergies/Adverse Reactions: Allergies Allergy/AdvReac Type Severity Reaction Status Date / Time sulfamethoxazole Allergy Unknown Verified 09/16/14 07:52 [From ] trimethoprim [From ] Allergy Rash Verified 06/27/23 07:16 Physical - Abdominal Exam Vital Signs: Temp Pulse Resp BP Pulse Ox O2 Flow Rate 99.1 F 84 16 106/78 06/27/23 06:38 06/27/23 06:38 06/27/23 06:38 06/27/23 06:38 Plan for Labor - Plan For Labor I expect patient to be DC'd or transferred within 96 hours.: Yes
[2023-06-27] MEDS ORDERED: GLYCOPYRROLATE 1 MG/5 ML VIAL ONE (08:59)
[2023-06-27] MEDS ORDERED: SCOPOLAMINE PATCH TOP SCH (09:00)
[2023-06-27] MEDS ORDERED: DEXAMETHASONE 4 MG/ML VIAL ONE (09:00)
[2023-06-27] MEDS ORDERED: ONDANSETRON 4 MG/2 ML VIAL ONE (09:00)
[2023-06-27] MEDS ORDERED: OXYTOCIN/SODIUM CHLORIDE 500 ML IV PRN (10:01)
[2023-06-27] MEDS ORDERED: ONDANSETRON ODT 4 MG TABLET TL PRN (10:01)
[2023-06-27] MEDS ORDERED: SIMETHICONE CHEW 80 MG TABLET PO PRN (10:01)
[2023-06-27] MEDS ORDERED: oxyCODONE 5 MG TABLET PO PRN (10:01)
[2023-06-27] MEDS ORDERED: SODIUM CHLORIDE FLUSH 0.9% 10 ML SYRINGE IVP PRN (10:01)
--- NOTE | 2023-06-27 10:05 | OPERATIVE REPORT ---
Operative Report - General Admit Date: 06/27/23 Planned Procedure: Repeat low-transverse section Pre-Op Diagnosis: Previous low-transverse section 39 weeks gestation Procedure Performed: Repeat low-transverse section Post Op Diagnosis: Previous low-transverse section, delivery of live rand neonat - Procedure Note Primary Surgeon: Lobo Orta MD Secondary Surgeon: DEVEN Pineda Anesthesia Provider: Lucretia Damian CRNA Anesthesia Technique: Spinal Pathology: None IV Fluids (mL): 1,400 Estimated Blood Loss (mL): 700 Urine Output (mL): 200 Findings: Normal appearing tubes and ovaries Complications: None - Other Other Information/Narrative: section was recommended. Risks, benefits and alternatives were discussed including but not limited to infection, bleeding that may require blood products or hysterectomy for life saving measures, injury to surrounding organs including but not limited to bowel, bladder, ureters, tubes and ovaries and/or the baby. Should injury occur it could require longer/additional surgery to repair. The patient stated understanding and desired to proceed. All questions were answered posed by patient. Due to several previous sections, 2 units of PRBC were crossmatched prior to the procedure. Prior to being taken to the OR, 2 grams of cefazolin IV was administered. The patient was taken to the operating room where regional anesthesia was found to be adequate. She was then prepared and draped in the usual sterile fashion in the dorsal supine position with a leftward tilt displacing the uterus. Medina was draining to gravity. SCDs were on bilateral lower extremities. A pfannenstiel skin incision was then made with the scalpel and carried through to the underlying layer of fascia. The fascia was incised in the midline and the incision extended laterally with the Patterson scissors. The superior aspect of the facial incision was then grasped with the Francisco clamps, elevated and the underlying rectus muscles dissected off sharply. Attention was then turned to the inferior aspect of this incision which in a similar fashion was grasped, elevated with the Francisco clamps and the rectus muscle dissected off sharply. The rectus muscles were in the midline. The peritoneum identified, grasped with the pick-ups and entered sharply with the Metzenbaum scissors. The peritoneal incision was then extended superiorly and inferiorly with good visualization of the bladder. The bladder blade was inserted. The vesicouterine peritoneum was identified, grasped with the pick-ups, and entered sharply with Metzenbaum scissors. This incision was then extended laterally and the bladder flap created digitally. The bladder blade was reinserted. The lower uterine segment was identified and incised in a transverse fashion with the scalpel. The uterine incision was then extended bluntly laterally. Artificial rupture of membranes demonstrated clear fluid. The bladder blade was removed. The fetus was in a cephalic presentation. The infants head delivered atraumatically. The anterior shoulders were delivered followed by the posterior shoulders then the remainder of the body. The infants mouth and nose were bulb suctioned. The umbilical cord was clamped times two and cut. The infant was h anded to the pediatric team. The placenta was removed with gentle traction. Oxytocin were added to IVF and allowed to run freely. The uterus was exteriorized and cleared of all clots and debris. The uterine incision was inspected and found to be without any extensions and was repaired with 0 Vicryl in a running, locked fashion. A second imbricating layer was performed. Upon inspection, the repaired hysterotomy was found to be hemostatic. The uterus was firm and returned to the abdomen. The gutters were cleared of all clots and debris. The fascia was reapproximated with 0 Vicryl in a running fashion. The subcutaneous tissue was closed with 2-0 Vicryl. The skin was closed in a subcuticular fashion with 4-0 Monocryl. The patient tolerated the procedure well. Sponge, lap and needle counts were correct times three. The patient was taken to the recovery room in stable condition. I appreciate the assistance of DEVEN Pineda during this procedure, and the assistance in retraction, visualization, dissection, and overall assistance during the case were instrumental to the patient's wellbeing.
[2023-06-27] MEDS ORDERED: LACTATED RINGERS 1,000 ML IV ONE (10:29)
--- NOTE | 2023-06-27 11:41 | ANESTHESIA POST OP EVALUATION ---
Anesthesia Post Eval - Post Anesthesia Eval Vitals: Last Vital Signs Temp 36.9 C 06/27/23 10:59 Pulse 69 06/27/23 11:30 Resp 15 06/27/23 11:30 BP 119/78 06/27/23 11:30 Pulse Ox 99 06/27/23 11:30 O2 Flow Rate CV Function Including HR & BP: Stable Pain Control: Satisfactory Nausea & Vomiting: Negative Mental Status: Baseline Respiratory Status: Airway Patent Hydration Status: Satisfactory Anesthesia Complications: None
[2023-06-27] MEDS ORDERED: NALBUPHINE 10 MG/ML AMP IVP PRN (11:42)
[2023-06-27] MEDS ORDERED: diphenhydrAMINE INJ 50 MG/ML VIAL IVP PRN (11:42)
[2023-06-27] MEDS ORDERED: fentaNYL 100 MCG/2 ML VIAL IT ONE (11:48)
[2023-06-27] MEDS ORDERED: MORPHINE PF 5 MG/10 ML VIAL IT ONE (11:48)
[2023-06-27] MEDS: ACETAMINOPHEN 500 MG TABLET PO SCH (16:05)
[2023-06-27] MEDS: KETOROLAC 30 MG/ML VIAL IVP SCH ×2 (16:06→22:15)
[2023-06-27] MEDS: DOCUSATE SODIUM 100 MG CAPSULE PO SCH (22:15)
[2023-06-27] MEDS: SODIUM CHLORIDE FLUSH 0.9% 10 ML SYRINGE IVP SCH (22:16)
[2023-06-28] MEDS: ACETAMINOPHEN 500 MG TABLET PO SCH ×3 (00:12→16:37)
[2023-06-28] MEDS: KETOROLAC 30 MG/ML VIAL IVP SCH (04:21)
[2023-06-28] MEDS: SODIUM CHLORIDE FLUSH 0.9% 10 ML SYRINGE IVP SCH (04:21)
[2023-06-28 06:12] LABS: BASOPHILS % (AUTO) 0.2 %; EOSINOPHILS % (AUTO) 0.3 %; LYMPHOCYTES # (AUTO) 1.8 10^3/uL (1.5-3.5); LYMPHOCYTES % (AUTO) 20.3 %; MEAN CORPUSCULAR HEMOGLOBIN 30.6 pg (27.0-31.0); MEAN CORPUSCULAR HGB CONC 33.3 g/dL (32.0-36.0); MEAN CORPUSCULAR VOLUME 91.8 fL (81.0-99.0); MEAN PLATELET VOLUME 11.3 fL (7.9-10.8); MONOCYTES # (AUTO) 0.7 10^3/uL (0.0-1.0); MONOCYTES % (AUTO) 8.4 %; NEUTROPHILS # (AUTO) 6.2 10^3/uL (1.5-6.6); NEUTROPHILS % (AUTO) 69.9 %; PLT - PLATELET COUNT 126 10^3/uL (130-450); RED BLOOD COUNT 2.94 10^6/uL (4.20-5.40); RED CELL DISTRIBUTION WIDTH 13.9 % (12.0-15.0); WHITE BLOOD COUNT 8.8 x10^3/uL (4.8-10.8)
[2023-06-28] MEDS ORDERED: ENOXAPARIN 40 MG/0.4 ML SYRINGE SUBQ SCH (09:00)
--- NOTE | 2023-06-28 10:09 | PROVIDER PROGRESS NOTE ---
Subjective - Subjective Subjective: Subjective Patient reports she is doing well. Lochia appropriate. Denies heavy bleeding. Ambulating. Pelvic and abdominal pain well-controlled. Tolerating oral intake. Diet: Regular. Voiding without difficulty. Passing flatus. Denies BM. Patient is bonding with baby in room Breast feeding going well. Denies feeling lightheaded, dizzy or excessively fatigued. Control: Partner vasectomy Objective General: Alert, oriented, no apparent distress. Cardiovascular: Regular rate. Regular rhythm. Lungs: No increased work of breathing. Abdomen: Uterus firm. Below umbilicus. No guarding or rebound. Extremities: No pain on palpation. No cords palpated. Distal pulses intact. Incision: Small amount of blood this morning, so bandages replaced. In the afternoon when rechecked, no blood Assessment and Plan day 1. -Routine care -Anticipate discharge tomorrow Status post repeat low-transverse section Objective - Vital Signs/Intake & Output Vital Signs: Vital Signs x48h Temp Pulse Resp BP Pulse Ox 06/28/23 08:45 98.4 F 63 16 95/49 L 100 06/28/23 04:15 97.2 F L 82 16 93/56 L 97 Intake & Output: Intake & Output 06/25/23 06/26/23 06/27/23 06/28/23 23:59 23:59 23:59 23:59 Intake Total 2220 600 Output Total 885 475 Balance 1335 125 - Lab Results Fish Bones: 06/28/23 05:50 Other Labs: Lab Results x24hrs 06/28/23 Range/Units 05:50 WBC 8.8 (4.8-10.8) x10^3/uL RBC 2.94 L (4.20-5.40) 10^6/uL Hgb 9.0 L (12.0-16.0) g/dL Hct 27.0 L (37.0-47.0) % MCV 91.8 (81.0-99.0) fL MCH 30.6 (27.0-31.0) pg MCHC 33.3 (32.0-36.0) g/dL RDW 13.9 (12.0-15.0) % Plt Count 126 L (130-450) 10^3/uL MPV 11.3 H (7.9-10.8) fL Neut # (Auto) 6.2 (1.5-6.6) 10^3/uL Lymph # (Auto) 1.8 (1.5-3.5) 10^3/uL Claiborne # (Auto) 0.7 (0.0-1.0) 10^3/uL Eos # (Auto) 0.0 (0.0-0.7) 10^3/uL Baso # (Auto) 0.0 (0.0-0.1) 10^3/uL Absolute Nucleated RBC 0.00 x10^3/uL Nucleated RBC % 0.0 /100WBC
[2023-06-28] MEDS: IBUPROFEN 600 MG TABLET PO SCH ×3 (10:26→22:28)
[2023-06-28] MEDS: DOCUSATE SODIUM 100 MG CAPSULE PO SCH ×2 (10:26→22:28)
[2023-06-29 00:21] VITALS: O2SAT 100
[2023-06-29] MEDS: ACETAMINOPHEN 500 MG TABLET PO SCH ×2 (00:21→09:09)
[2023-06-29] MEDS: IBUPROFEN 600 MG TABLET PO SCH (04:31)
--- NOTE | 2023-06-29 07:53 | DISCHARGE SUMMARY ---
"Discharge Summary Admit Date: 06/27/23 Discharge Date: 06/29/23 Discharging Provider: Lobo Orta MD Condition at Discharge: Good Discharge Disposition: 01 Home, Self Care - DIAGNOSES Admission Diagnoses: 39 weeks gestation Previous low-transverse section History of hemorrhage Discharge Diagnoses with Status of Each Condition: 39 weeks gestation Previous low-transverse section History hemorrhage Status post repeat low-transverse section Delivery of live rand - HPI History of Present Illness: Subjective Patient reports she is doing well. Lochia appropriate. Denies heavy bleeding. Ambulating. Pelvic and abdominal pain well-controlled. Tolerating oral intake. Diet: Regular. Voiding without difficulty. Passing flatus. Denies BM. Patient is bonding with baby in room Breast feeding going well. Denies feeling lightheaded, dizzy or excessively fatigued. Control: Partner vasectomy Objective General: Alert, oriented, no apparent distress. Cardiovascular: Regular rate. Regular rhythm. Lungs: No increased work of breathing. Abdomen: Uterus firm. Below umbilicus. No guarding or rebound. Extremities: No pain on palpation. No cords palpated. Distal pulses intact. Incision: Clean, dry, and intact. - CONSULTS | PROCEDURES Procedures: Repeat low-transverse section - HOSPITAL COURSE Hospital Course: Patient was admitted for planned repeat low-transverse section at 39 weeks. She had an uneventful surgery. She had 2 days of recovery th at were uneventful and she discharged on day 2 with her . weight: 3481 g - ALLERGIES Allergies/Adverse Reactions: Allergies Allergy/AdvReac Type Severity Reaction Status Date / Time sulfamethoxazole Allergy Unknown Verified 09/16/14 07:52 [From ] trimethoprim [From ] Allergy Rash Verified 06/27/23 07:16 - MEDICATIONS Home Medications: Ambulatory Orders Medication Instructions Recorded Confirmed Pnv No.95/Ferrous Fum/Folic AC 1 each PO DAILY 09/16/14 09/16/14 [ Tablet] Benzonatate [Tessalon Perle] 100 mg PO TID PRN #25 capsule 10/29/19 Ondansetron Odt [Zofran] 4 mg TL Q6H PRN #15 tablet 10/29/19 Oseltamivir [Tamiflu] 75 mg PO BID #10 capsule 10/29/19 dexAMETHasone [Decadron] 4 mg PO DAILY #5 tablet 10/29/19 diphenhydrAMINE [Benadryl] 25 mg PO Q4-6H PRN #20 capsule 10/29/19 Docusate Sodium 100Mg Capsule 100 - 200 mg PO BID PRN #60 cap 06/29/23 [Colace 100Mg Capsule] Ibuprofen [Motrin] 600 mg PO Q6H PRN #30 tab 06/29/23 oxyCODONE [Roxicodone] 5 mg PO Q4H PRN #20 tablet 06/29/23 - LABS Result Diagrams: 06/28/23 05:50 - FOLLOW UP Follow Up: In 1 week with Lobo Orta MD at [facility] - TIME SPENT Time Spent in Discharge (Minutes): 30"
--- NOTE | 2023-06-29 07:55 | Discharge Plan ---
Discharge Plan Problem Reviewed?: Yes Disposition: Home, Self Care Condition: Good Prescriptions: Docusate Sodium 100Mg Capsule [Colace 100Mg Capsule] 100 - 200 mg PO BID PRN #60 cap PRN Reason: Constipation Ibuprofen [Motrin] 600 mg PO Q6H PRN #30 tab PRN Reason: Pain oxyCODONE [Roxicodone] 5 mg PO Q4H PRN #20 tablet PRN Reason: Severe Pain Diet: Regular Instruction Topics: C Section Dc No Smoking: If you smoke, Please STOP! Call for help. Follow-up with: Lobo Orta MD [Provider Admit Priv/Credential] -
[2023-06-29] MEDS: DOCUSATE SODIUM 100 MG CAPSULE PO SCH (09:10)
--- NOTE | 2023-06-29 13:13 | Labor Flowsheet ---
Labor Flowsheet Datetime Report Generated by CPN: 06/29/2023 13:12 Datetime: 06/27/2023 12:51 VAGINAL EXAM Membranes Ruptured Date/Time: 06/27/2023 09:20 Membranes Rupture Method: Artificial Amniotic Fluid Color: Clear Amniotic Fluid Amount: Moderate Amniotic Fluid Odor: None
[2023-06-29 13:15] VITALS: BP 108/60
== END 2023-06-29 12:30 | disposition home or self-care (01) | DRG 788 ==
LOC: FBP 06-27 06:10
PROVIDERS: ADMIT Obstetrics & Gynecology; ATTEND Obstetrics & Gynecology
PROC: 10D00Z1 Extraction of Products of Conception, Low, Open Approach (ICD-10-PCS; principal; 2023-06-27 08:30)
DX: O34.211 Maternal care for low transverse scar from previous cesarean delivery (principal); Z3A.39 39 weeks gestation of pregnancy; Z37.0 Single live birth; Z87.59 Personal history of other complications of pregnancy, childbirth and the puerperium; O99.02 Anemia complicating childbirth
CPT/HCPCS: 36415; 85025; 86850; 86900; 86901; 86920; A9270; J2274; J2300; J3490; J7120

== ENCOUNTER 2023-07-05 15:13 | Outpatient (CLI) | payer MEDICAID ==
[2023-07-05 15:31] LABS: HCT - HEMATOCRIT 30.9 % (37.0-47.0); MEAN CORPUSCULAR HEMOGLOBIN 29.9 pg (27.0-31.0); MEAN CORPUSCULAR HGB CONC 32.4 g/dL (32.0-36.0); MEAN CORPUSCULAR VOLUME 92.2 fL (81.0-99.0); MEAN PLATELET VOLUME 9.7 fL (7.9-10.8); RED BLOOD COUNT 3.35 10^6/uL (4.20-5.40); RED CELL DISTRIBUTION WIDTH 14.1 % (12.0-15.0)
[2023-07-05 15:40] LABS: CREATININE,URINE 115.2 mg/dL; PROTEIN/CREATININE RATIO,URINE 0.1 (<=0.2)
[2023-07-05 15:42] LABS: ALBUMIN 3.2 g/dL (3.2-5.5); ALBUMIN/GLOBULIN RATIO 1.1 (1.0-2.2); BILIRUBIN,TOTAL 0.4 mg/dL (0.2-1.0); CALCIUM 8.3 mg/dL (8.5-10.3); CREATININE 0.5 mg/dL (0.4-1.0); POTASSIUM 3.8 mmol/L (3.5-5.0)
== END 2023-07-05 15:14 | disposition home or self-care (01) ==
LOC: LAB 15:13
PROVIDERS: ATTEND Obstetrics & Gynecology
DX: R03.0 Elevated blood-pressure reading, without diagnosis of hypertension (principal)
CPT/HCPCS: 36415; 80053; 82570; 83615; 84156; 85027

== ENCOUNTER 2023-07-05 21:10 | Observation (INO) | payer MEDICAID ==
[2023-07-05] MEDS ORDERED: MAGNESIUM SULFATE 4 GRAM 4 GM/50 ML BAG IV ONE ×2 (21:11→23:00)
[2023-07-05] MEDS ORDERED: LABETALOL 20 MG/4 ML SYRINGE IVP PRN ×3 (21:11)
[2023-07-05] MEDS ORDERED: hydrALAZINE INJ 20 MG/ML VIAL IVP PRN ×2 (21:11)
[2023-07-05] MEDS ORDERED: CALCIUM GLUC 1,000MG/50ML-NACL 1,000 MG/50 ML BAG IV ONE (21:11)
[2023-07-05] MEDS ORDERED: NIFEdipine 10 MG CAPSULE PO PRN (21:11)
[2023-07-05] MEDS ORDERED: oxyCODONE 5 MG TABLET PO PRN (21:14)
[2023-07-05] MEDS ORDERED: ONDANSETRON ODT 4 MG TABLET TL PRN (21:14)
[2023-07-05] MEDS ORDERED: DOCUSATE SODIUM 100 MG CAPSULE PO PRN (21:14)
[2023-07-05] MEDS ORDERED: IBUPROFEN 600 MG TABLET PO PRN (21:14)
--- NOTE | 2023-07-05 22:12 | HISTORY & PHYSICAL EXAMINATION ---
Admit History - Visit Reason Visit Reason: Other (post pre-eclampsia with severe features) - : 4 Parity: 4 Care: positive: [facility] Smoking Status: Never smoker - Other Maternal History Other Maternal History: Patient is postoperative day #8 status post repeat section on 06/27/2023. She was evaluated in the office today for a visit and was noted to have very elevated blood pressures. Patient had lab work done at that time and opted to go home. Lab work was normal. Repeat blood pressure was 185/100. Patient was counseled to come in. She denies headache, changes in vision, right upper quadrant pain. She has noticed increased lower extremity edema bilaterally over the last few days. Meds/Allgy - Home Medications Home Medications: Ambulatory Orders Medication Instructions Recorded Confirmed Pnv No.95/Ferrous Fum/Folic AC 1 each PO DAILY 09/16/14 09/16/14 [ Tablet] Benzonatate [Tessalon Perle] 100 mg PO TID PRN #25 capsule 10/29/19 Ondansetron Odt [Zofran] 4 mg TL Q6H PRN #15 tablet 10/29/19 Oseltamivir [Tamiflu] 75 mg PO BID #10 capsule 10/29/19 dexAMETHasone [Decadron] 4 mg PO DAILY #5 tablet 10/29/19 diphenhydrAMINE [Benadryl] 25 mg PO Q4-6H PRN #20 capsule 10/29/19 Docusate Sodium 100Mg Capsule 100 - 200 mg PO BID PRN #60 cap 06/29/23 [Colace 100Mg Capsule] Ibuprofen [Motrin] 600 mg PO Q6H PRN #30 tab 06/29/23 oxyCODONE [Roxicodone] 5 mg PO Q4H PRN #20 tablet 06/29/23 - Allergies Allergies/Adverse Reactions: Allergies Allergy/AdvReac Type Severity Reaction Status Date / Time sulfamethoxazole Allergy Unknown Verified 09/16/14 07:52 [From ] trimethoprim [From ] Allergy Rash Verified 06/27/23 07:16 Review of Systems - Constitutional Constitutional: denies: Fever, Chills, Malaise - Eyes Eyes: denies: Spots in vision - Cardiovascular Cariovascular: denies: Chest pain - Respiratory Respiratory: denies: SOB at rest - All Other Systems All Other Systems: reports: Reviewed and negative Physical - Abdominal Exam Vital Signs: 158/78 - Other Notes Labor Progress Note/Additional Text: Gen: NAD Pulm: CTA bilaterally Cardaic: RRR Abdomen: soft, non-tender Ext: 2+ bilateral lower extremity edema Neuro: brisk 3+ DTRs, no clonus Plan for Labor - Plan For Labor I expect patient to be DC'd or transferred within 96 hours.: Yes Plan for Labor: 1. preeclampsia -Lab work is normal, however patient has severe range blood pressure taken by nursing with elevated blood pressures documented in clinic as well -Magnesium sulfate for seizure prophylaxis -Strict I's and O's -Discussed plan of care with patient and significant other. Discussed signs and symptoms of preeclampsia and management of preeclampsia. Risk, benefits, and alternatives of an subsulfate discussed. All questions answered.
[2023-07-05] MEDS: LACTATED RINGERS 1,000 ML IV SCH (22:53)
[2023-07-05] MEDS: LABETALOL 100 MG TABLET PO SCH (23:17)
[2023-07-05] MEDS: MAGNESIUM SULFATE IN WATER 20 GM/500 ML IV.SOLN IV SCH (23:30)
[2023-07-06] MEDS: MAGNESIUM SULFATE IN WATER 20 GM/500 ML IV.SOLN IV SCH ×2 (08:35→18:55)
[2023-07-06] MEDS: LABETALOL 100 MG TABLET PO SCH ×2 (08:41→21:07)
--- NOTE | 2023-07-06 10:05 | PROVIDER PROGRESS NOTE ---
Subjective - Prog Note Date Prog Note Date: 07/06/23 Prog Note Time: 10:02 - Subjective Subjective: Patient is doing well this morning. She denies headache, changes in vision, right upper quadrant pain. She denies shortness of breath. Patient is tolerat ing p.o. Objective - Vital Signs/Intake & Output Vital Signs: Vital Signs x48h Temp Pulse Resp BP Pulse Ox 07/06/23 08:42 70 17 130/77 98 07/06/23 07:05 98.2 F 78 16 143/79 H 99 07/06/23 06:00 75 16 131/73 H 98 07/06/23 05:16 66 17 154/82 H 99 07/06/23 05:00 76 15 137/77 H 98 07/06/23 04:30 67 122/72 98 07/06/23 04:00 70 16 136/77 H 97 07/06/23 03:30 73 144/77 H 98 07/06/23 03:00 98.6 F 83 18 136/90 H 100 07/06/23 02:30 69 131/71 H 97 Intake & Output: Intake & Output 07/03/23 07/04/23 07/05/23 07/06/23 23:59 23:59 23:59 23:59 Intake Total 1009.166 Output Total 972 6161 Balance -295 -4419.732 - Objective General Appearance: positive: No acute distress Respiratory: positive: Breath sounds nml Cardiovascular: positive: Regular rate & rhythm Abdomen: positive: Non-tender (incision is clean, small amount of serosanginous discharge from left side of incision) Neurologic/Psychiatric: positive: Oriented x3 Reflexes: Knee (R): 2+, Knee (L): 2+ Assessment/Plan - Problem List (1) Pre-eclampsia, Impression: 1. Continue magnesium sulfate for seizure prophylaxis -No signs or symptoms of magnesium toxicity -Urine output: 650 mL in past 2 hours 2. Labetalol 100 mg p.o. twice daily I reviewed signs and symptoms of preeclampsia with the patient. Plan is to discontinue magnesium sulfate after 24 hours and monitor blood pressures through tomorrow with potential discharge tomorrow afternoon if blood pressures are well controlled on p.o. labetalol.
[2023-07-06] MEDS: LACTATED RINGERS 1,000 ML IV SCH (11:31)
--- NOTE | 2023-07-06 14:17 | PROVIDER PROGRESS NOTE ---
Subjective - Prog Note Date Prog Note Date: 07/06/23 Prog Note Time: 14:15 - Subjective Subjective: Patient is doing well this Afternoon.She denies headache, change in vision, right upper quadrant pain. She denies chest pain or shortness of breath. Objective - Vital Signs/Intake & Output Reviewed Vital Signs: Yes Vital Signs: Vital Signs x48h Temp Pulse Resp BP Pulse Ox 07/06/23 13:38 76 16 123/71 97 07/06/23 11:00 98.1 F 80 16 113/70 98 07/06/23 08:42 70 17 130/77 98 07/06/23 07:05 98.2 F 78 16 143/79 H 99 Intake & Output: Intake & Output 07/03/23 07/04/23 07/05/23 07/06/23 23:59 23:59 23:59 23:59 Intake Total 1641.666 Output Total 675 5250 Balance -477 -6514.334 - Objective General Appearance: positive: No acute distress Respiratory: positive: No respiratory distress Cardiovascular: positive: Regular rate & rhythm Extremities: positive: Pedal edema Reflexes: Bicep (R): 2+, Bicep (L): 2+ Assessment/Plan - Problem List (1) Pre-eclampsia, Impression: 1. Continue magnesium sulfate for 24 hours No signs or symptoms of magnesium toxicity Continue labetalol 100 mg p.o. twice daily Strict ins and outs Urine output has been adequate
--- NOTE | 2023-07-06 19:54 | PROVIDER PROGRESS NOTE ---
Subjective - Prog Note Date Prog Note Date: 07/06/23 Prog Note Time: 19:53 - Subjective Subjective: Patient is doing well. She denies headache, changes in vision, right upper quadrant pain. She denies chest pain or shortness of breath. Objective - Vital Signs/Intake & Output Vital Signs: Vital Signs x48h Pulse Resp BP Pulse Ox 07/06/23 18:53 76 16 136/83 H 07/06/23 16:46 67 16 138/85 H 07/06/23 14:45 75 17 139/84 H 98 07/06/23 13:38 76 16 123/71 97 Intake & Output: Intake & Output 07/03/23 07/04/23 07/05/23 07/06/23 23:59 23:59 23:59 23:59 Intake Total 50 2141.666 Output Total 675 6900 Balance -653 -9480.207 - Objective General Appearance: positive: No acute distress Respiratory: positive: Breath sounds nml Cardiovascular: positive: Regular rate & rhythm Skin: positive: Color nml Extremities: positive: Pedal edema (2+) Reflexes: Knee (R): 2+, Knee (L): 2+ Assessment/Plan - Problem List (1) Pre-eclampsia, Impression: 1. Magnesium sulfate to be discontinued tonight. Patient's blood pressures have been within normal limits on p.o. labetalol 100 mg twice daily.Discussed discharge to home tomorrow if blood pressures stay within normal limits. I discussed signs and symptoms of preeclampsia at length. Patient was counseled to return for headache, changes in vision, right upper quadrant pain, or any other concerns. She will have full close follow-up with Dr. Orta as an outpatient.
[2023-07-07 04:48] VITALS: O2SAT 100
[2023-07-07] MEDS ORDERED: LABETALOL 100 MG TABLET PO SCH (09:07)
--- NOTE | 2023-07-07 09:09 | PROVIDER PROGRESS NOTE ---
Subjective - Prog Note Date Prog Note Date: 07/07/23 Prog Note Time: 09:06 - Subjective Subjective: Patient was admitted for preeclampsia with severe features. She was given magnesium sulfate for 24 hours and was started on labetalol 100 mg p.o. twice daily. Labetalol was increased to 200 mg p.o. twice daily. Patient is doing well this morning. She denies headache, changes in vision, right upper quadrant pain. She is ambulating, tolerating regular diet, spontaneously voiding. She denies chest pain or shortness of breath. Objective - Vital Signs/Intake & Output Reviewed Vital Signs: Yes Vital Signs: Vital Signs x48h Pulse Resp BP Pulse Ox 07/07/23 07:31 68 16 148/77 H 07/07/23 07:00 70 149/87 H 07/07/23 06:34 65 16 134/77 H 07/07/23 06:05 67 14 150/77 H 100 07/07/23 04:45 62 16 152/83 H 100 07/07/23 03:00 70 14 138/75 H 99 Intake & Output: Intake & Output 07/04/23 07/05/23 07/06/23 07/07/23 23:59 23:59 23:59 23:59 Intake Total 250 3630.006 500 Output Total 1079 8390 1075 [facility]825 [phone] - Objective General Appearance: positive: No acute distress Respiratory: positive: Breath sounds nml Cardiovascular: positive: Regular rate & rhythm Abdomen: positive: Non-tender (Small half centimeter area on the right side of the incision that is slightly open. Not currently draining. No erythema) Skin: positive: Color nml Extremities: positive: Pedal edema (1+) Reflexes: Knee (R): 2+, Knee (L): 2+ Assessment/Plan - Problem List (1) Pre-eclampsia, Impression: Labetalol 200 mg p.o. twice daily. Patient given prescription for blood pressure cuff.Patient given strict blood pressure parameters. She is to call for systolic blood pressures greater than 140 or diastolic blood pressures greater than 90. Patient instructed to come in for systolic blood pressure greater than 160 or diastolic blood pressure greater than 110. Patient counseled on signs and symptoms of preeclampsia including headache, right upper quadrant pain, changes in vision, increased lower extremity edema, or any other concerns. Patient will have close follow-up in the clinic in 2 to 3 days for blood pressure check.
--- NOTE | 2023-07-07 09:11 | DISCHARGE SUMMARY ---
Discharge Summary Discharge Date: 07/07/23 Discharging Provider: Cyndi Primary Care Provider: You Code Status: Attempt Resuscitation Condition at Discharge: Good Discharge Disposition: 01 Home, Self Care - DIAGNOSES Admission Diagnoses: preeclampsia with severe features - HPI History of Present Illness: Patient presented with severe range blood pressures in the office. Patient declined admission at that time and was discharged home. Blood pressure later that night included a systolic blood pressure of 185. Patient was then admitted for preeclampsia with severe features. She was started on magnesium sulfate for seizure prophylaxis and received IV antihypertensive medication. Patient was started on labetalol 100 mg p.o. twice daily. Labetalol was increased to 200 mg p.o. twice daily. Patient was asymptomatic she was discharged to home on labetalol and was given strict preeclampsia precautions a nd was counseled extensively on signs and symptoms of preeclampsia. She will have close follow-up in the office with Dr. Orta. - ALLERGIES Allergies/Adverse Reactions: Allergies Allergy/AdvReac Type Severity Reaction Status Date / Time sulfamethoxazole Allergy Unknown Verified 09/16/14 07:52 [From ] trimethoprim [From ] Allergy Rash Verified 06/27/23 07:16 - MEDICATIONS Home Medications: Ambulatory Orders Medication Instructions Recorded Confirmed Pnv No.95/Ferrous Fum/Folic AC 1 each PO DAILY 09/16/14 09/16/14 [ Tablet] Benzonatate [Tessalon Perle] 100 mg PO TID PRN #25 capsule 10/29/19 Ondansetron Odt [Zofran] 4 mg TL Q6H PRN #15 tablet 10/29/19 Oseltamivir [Tamiflu] 75 mg PO BID #10 capsule 10/29/19 dexAMETHasone [Decadron] 4 mg PO DAILY #5 tablet 10/29/19 diphenhydrAMINE [Benadryl] 25 mg PO Q4-6H PRN #20 capsule 10/29/19 Docusate Sodium 100Mg Capsule 100 - 200 mg PO BID PRN #60 cap 06/29/23 [Colace 100Mg Capsule] Ibuprofen [Motrin] 600 mg PO Q6H PRN #30 tab 06/29/23 oxyCODONE [Roxicodone] 5 mg PO Q4H PRN #20 tablet 06/29/23 Labetalol [Trandate] 100 mg PO BID #60 tablet 07/06/23 - PHYSICAL EXAM AT DISCHARGE General Appearance: positive: No acute distress Respiratory: positive: Breath sounds nml Cardiovascular: positive: Regular rate & rhythm Abdomen: positive: Non-tender Extremities: positive: Pedal edema (1+) Neurologic/Psychiatric: positive: Oriented x3 Reflexes: Knee (R): 2+, Knee (L): 2+
[2023-07-07 09:36] VITALS: BP 129/77
--- NOTE | 2023-07-07 09:51 | Labor Flowsheet ---
Labor Flowsheet Datetime Report Generated by CPN: 07/07/2023 09:51 Datetime: 07/07/2023 09:00 VITAL SIGNS NBP Sys/Gregoria/Mean (mmHg): 129 : 77 : 87 Pulse: 76 Datetime: 07/06/2023 20:43 SpO2 (%): 99 Datetime: 06/27/2023 12:51 VAGINAL EXAM Membranes Ruptured Date/Time: 06/27/2023 09:20 Membranes Rupture Method: Artificial Amniotic Fluid Color: Clear Amniotic Fluid Amount: Moderate Amniotic Fluid Odor: None
== END 2023-07-07 09:32 | disposition home or self-care (01) ==
LOC: WFO 21:10 → FBP 21:17 → EDSTATUS 22:00
PROVIDERS: ADMIT Obstetrics & Gynecology Obstetrics; ATTEND Obstetrics & Gynecology Obstetrics
DX: O14.15 Severe pre-eclampsia, complicating the puerperium (principal); Z79.899 Other long term (current) drug therapy
CPT/HCPCS: 36415; 80053; 82570; 83615; 84156; 85027; 96365; 96366; 96375; A9270; G0378; J7120; J3475